=== PATIENT | female | born 1945 | race Caucasian/White ===

== ENCOUNTER → 2024-06-09 13:08 | Outpatient (REF) | payer MEDICARE, OTHER, SELFPAY | LOC: HWWDC 13:08 | PROVIDERS: ATTENDING PHYSICIAN Obstetrics & Gynecology; FAMILY PHYSICIAN Internal Medicine | DX: Z12.31 Encounter for screening mammogram for malignant neoplasm of breast (principal) | CPT/HCPCS: 77063; 77067 ==

== ENCOUNTER 2024-11-20 05:57 | Day surgery (SDC) | payer MEDICARE, OTHER, SELFPAY ==
[2024-09-05 12:51] VITALS: BMI 25.4
[2024-09-05 13:57] LABS: Hemoglobin 11.2 g/dL (12.0-16.0); Mean Corp Hgb Conc. 32.9 g/dL (33.0-37.0); Mean Corpuscular Hgb 30.9 pg (27.0-31.0); Mean Corpuscular Volume 93.7 fL (81.0-99.0); Mean Platelet Volume 9.6 fL (7.4-10.4); Platelet Count 354 10^3/uL (130-400); Red Blood Cell Count 3.63 10^6/uL (4.20-5.40); Red Cell Dist. Width 13.2 % (11.5-14.5)
[2024-09-05 14:28] LABS: ALT (SGPT) 19 U/L (0-35); AST (SGOT) 22 U/L (14-36); Alkaline Phosphatase 56 U/L (38-126); Blood Urea Nitrogen 21 mg/dl (7-17); Calcium 10.3 mg/dl (8.4-10.2); Carbon Dioxide 27 mmol/L (22-30); Chloride 92 mmol/L (98-107); Estimated Creatinine Clearance 58 ml/min; Glucose 95 mg/dl (70-99); Potassium 4.7 mmol/L (3.5-5.1); Sodium 130 mmol/L (135-145); Total Bilirubin 0.6 mg/dl (0.2-1.3); Total Protein 7.5 g/dl (6.3-8.2); eGFR > 60.00
[2024-09-05 15:40] VITALS: BMI 25.4
[2024-09-05 16:01] LABS: Reticulocyte Count 1.5 % (0.4-2.8)
[2024-09-05 16:21] LABS: Iron 105 ug/dl (37-170)
[2024-09-05 16:30] LABS: Percent Saturation 35 % (20-50); Total Iron Binding Capacity 297 ug/dl (265-497)
[2024-09-05 18:07] LABS: Folate > 20.0 ng/ml (2.76-20); Vitamin B12 577 pg/ml (239-931)
[2024-09-06 09:27] LABS: Glycohemoglobin (HgbA1c) 5.7 % (4.0-5.6)
--- NOTE | 2024-09-11 15:45 | VNURNOTE ---
Patient is scheduled for an elective R TKA on 09/25/24- she is a same day patient with Dr Burleson. Spoke with patient prior to surgery. Introduced role of [facility] Liaison. Patient reports that she lives alone in a one story home.
There is 1 step to enter.
She currently has a cane and rolling walker.
PCP is Dr Gene Ryder.
Discussed [facility] joint protocol and post surgical plans (this author was informed by MARIA M Gifford patient to have extended home PT).
Reviewed that she will have [facility] services for an extended period of time (2-3 weeks).
Patient selects [facility] for her home care needs and plans to go to [facility] on Oct 11.
Patient is in agreement with plan and states that her son will be home with her the first week post op. She did arrange caregivers through [facility]. Advised to bring RW with her day of surgery. [facility] referral placed in
[facility].
Plan: [facility] per [facility] joint protocol 09/25, extended home PT, then outpt PT at [facility]
[2024-10-26 14:13] VITALS: BMI 24.6
--- NOTE | 2024-10-26 14:24 | HPS.HSE ---
Family Physician
-
Family Physician: Connor Davenport
Chief Complaint
-
Advanced primary osteoarthritis of the right knee.
History of Present Illness
The patient is an 78-year-old female presenting today for advanced primary osteoarthritis of the right knee. The patient reports significant right knee pain and instability secondary to this diagnosis. She notes that her current right knee
symptoms greatly interfere with her activities of daily living and overall impact her quality of life. She has tried and failed multiple conservative treatment measures in the past for her right knee pain. These conservative treatment measures
include self therapeutic exercises, activity modification, corticosteroid injections, medical management with Tylenol, and the application of ice and/or heat. Recent x-ray findings of the right knee demonstrated advanced osteoarthritis, [id number]
in the lateral compartment, and periarticular spurs in the lateral and patellofemoral compartments. She was determined to be in need of a right total knee arthroplasty. She denies any current complaints today such as chest pain, shortness of breath,
palpitations, nausea, vomiting, diarrhea, lightheadedness, dizziness, cough, sore throat, or fever.
Medical History
Past Medical History
Past Medical History: Reports Other
Additional Past Medical History:
1. Osteoarthritis, status post left total knee arthroplasty, 01/2020, by Dr. Derik Burleson.
2. Hypertension.
3. Hypercholesterolemia.
4. PACs and PVCs, asymptomatic.
5. 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
6. GERD.
7. Colon polyps.
8. Diverticulosis.
9. Vertigo.
10. Right breast cancer, 1999, status post lumpectomy with lymph node excision, chemotherapy, and radiation.
11. Chronic mild anemia, pre-operative anemia panel 09/2024 stable.
12. Osteopenia.
13. Mild hyponatremia, secondary to SIADH; on fluid restriction.
14. Prediabetes, A1c 5.7.
15. Remote history of tobacco abuse.
16. Daily alcohol.
Past Surgical History: Reports Other
Additional Past Surgical History:
1. Left total knee arthroplasty, 01/2020, by Dr. Derik Burleson.
2. Left carpal tunnel release.
3. Right lumpectomy with lymph node excision.
4. Bilateral corneal transplant.
5. Bilateral cataract extraction.
6. Colonoscopy.
7. Endoscopy.
Social History
Tobacco: Former Smoker (She is a former 1 pack per day cigarette smoker who quit tobacco products altogether 40 years ago.)
Alcohol: Daily (She reports, on average, drinking 2 small glasses of wine daily. )
Living: Alone (The patient lives in a one-story home. She reports that her son will be staying with her for 5 days post-operatively.)
Family History
Family History: Not pertinent
Allergies / Home Medications
Allergy/Medication List:
Home medications:
1. Acetaminophen 500 mg p.o. every 6 hours as needed.
2. Tylenol Arthritis 1300 mg p.o. every 12 hours as needed.
3. Ascorbic acid 500 mg p.o. daily.
4. Aspirin 81 mg p.o. daily.
5. Calcium carbonate 600 mg p.o. twice a day.
6. Nexium 40 mg p.o. daily.
7. Lisinopril 40 mg p.o. daily.
8. Multivitamin 1 tablet p.o. daily.
9. Metamucil 1.2 g p.o. daily.
10. Rosuvastatin 10 mg p.o. daily.
11. PreserVision 1 tablet p.o. twice a day.
Allergies: Penicillin. Neosporin. Erythromycin.
Review of Systems
-
A 12 point ROS was completed and negative except as noted: Yes
Physical Exam
Vital Signs
Blood pressure 123/76. Heart rate 87. Respirations 18. Pulse ox 99% on room air.
Height 5 feet, 5 inches. Weight 67 kg. BMI 24.6.
Physical Exam
General: Well Developed, Well Nourished and No Apparent Distress
HEENT: NormoCephalic, Moist mucous membranes and Atraumatic
Respiratory: Clear
Cardiac: Regular Rhythm
GI: Soft, Non Tender and Non Distended
Musculoskeletal: Other (Right knee: 18 degrees valgus alignment. Significant pain with terminal extension. Small effusion. Palpable Zabala cyst. Medial joint line tenderness. Lateral joint line tenderness. Patellar grind. She ambulates with a
rolling walker. )
Skin: Warm and Dry
Neuro: AO x 3 and Nonfocal/grossly intact
Laboratory Results
-
DIAGNOSTIC STUDIES as of 10/26/2024: White blood cell count 8.0. Hemoglobin 11.4. Platelet count 294,000. Sodium 141. Potassium 4.2. BUN 23. Creatinine 0.7. Glucose 88. Hemoglobin A1c 5.7. Calcium 10.2. AST 23. ALT 21. Albumin 4.4. Type and screen A
positive. MRSA screen negative.
EKG 10/26/2024: Normal sinus rhythm. Septal infarct, age undetermined. When compared to the EKG of 09/05/2024, PACs no longer present. The patient is asymptomatic and able to preform >4 METS.
Impression/Plan
-
CLEARANCES:
1. Primary medical, Dr. Connor Davenport, cleared. Labs/EKG reviewed.
Primary medical phone number: [phone].
2. Nephrology, Dr. Wil Clement, cleared.
3. Dental waived.
IMPRESSION/PLAN:
1. Advanced primary osteoarthritis of the right knee in need of a right total knee arthroplasty by Dr. Derik Burleson on 11/20/2024. The benefits and risks of the procedure have been explained to the patient. The patient understands these risks and
wishes to proceed.
2. DVT prophylaxis: Aspirin with bilateral venous compression devices.
3. Nausea prevention: The patient would prefer IV Compazine to be given to her pre-operatively. She was advised to discuss this with her anesthesiologist the morning of her surgery. Zofran should be avoided given her history of prolonged QT.
4. Hyponatremia: This is in the setting of SIADH. She has been placed on a 40 oz fluid restriction by Nephrology given her most recent sodium result. She will continue this upon discharge.
5. Chronic anemia: Fortunately this is mild and she can proceed as planned. Her previous anemia panel was within normal limits and she denies any overt bleeding. Her most recent colonoscopy in 2022 demonstrated diverticulosis and 2 colon polyps.
6. 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 In preparation for her procedure, she has
already been prescribed Oxycodone 5 mg, 1-2 tablets p.o. every 6 hours as needed for moderate to severe post-operative pain. She will also utilize Acetaminophen 1000 mg p.o. every 6 hours and Dexamethasone 4 mg p.o. twice a day for 3 days
post-surgery. Celebrex was also prescribed prior to learning of her hyponatremia. Per her homicide squad commanding officer, she may utilize this for a 'few' days post-surgery.
7. Discharge planning: She likely would benefit from extended visiting nursing services upon discharge given her limited support system and lack of transportation to outpatient physical therapy. Jyoti Ortega from visiting nursing services was made
aware of this patient previously.
Patient's phone number: [phone].
Patient's contact (Vinicio Noyola - Son): [phone].
[2024-10-26 14:34] LABS: Hematocrit 35.4 % (37.0-47.0); Hemoglobin 11.4 g/dL (12.0-16.0); Mean Corp Hgb Conc. 32.2 g/dL (33.0-37.0); Mean Corpuscular Hgb 30.6 pg (27.0-31.0); Mean Corpuscular Volume 95.2 fL (81.0-99.0); Mean Platelet Volume 10.4 fL (7.4-10.4); Platelet Count 294 10^3/uL (130-400); Red Blood Cell Count 3.72 10^6/uL (4.20-5.40); Red Cell Dist. Width 12.6 % (11.5-14.5)
[2024-10-26 15:04] LABS: ALT (SGPT) 21 U/L (0-35); AST (SGOT) 23 U/L (14-36); Albumin 4.4 g/dl (3.5-5.0); Alkaline Phosphatase 55 U/L (38-126); Blood Urea Nitrogen 23 mg/dl (7-17); Calcium 10.2 mg/dl (8.4-10.2); Carbon Dioxide 27 mmol/L (22-30); Chloride 103 mmol/L (98-107); Estimated Creatinine Clearance 58 ml/min; Glucose 88 mg/dl (70-99); Potassium 4.2 mmol/L (3.5-5.1); Sodium 141 mmol/L (135-145); Total Bilirubin 0.6 mg/dl (0.2-1.3); Total Protein 7.4 g/dl (6.3-8.2); eGFR > 60.00
[2024-10-27 08:16] LABS: Glycohemoglobin (HgbA1c) 5.7 % (4.0-5.6)
[2024-11-20] VITALS (11 sets, daily range): BP systolic 124–156; BP diastolic 66–96
[2024-11-20] MEDS: CELEBREX 200 MG PO (06:17)
[2024-11-20] MEDS: TYLENOL 650 MG PO (06:17)
[2024-11-20] MEDS: NORMOSOL-R/PLASMALYTE-A 1000 IV (06:30)
--- NOTE | 2024-11-20 07:18 | W.DS.TRANS ---
DC Summary - Manager Customer Service
-
Discharge Instructions:
Sleep Apnea Risk Intermediate
Discharge Diagnosis/Procedures R TKA 11/20/24
Diet As tolerated
Activity With Walker
Driving Restrictions No driving
Bathing Restrictions OK to Shower
Other Services PT
Instructions:
Stand-Alone Forms: SDS Total Hip and Knee D/C
Changes to Home Medications: Yes
Discharge Medications:
DC Medications w/original date entered in [employer]
ascorbic acid (vitamin C) 500 mg tablet (Vitamin C) 500 mg PO DAILY 09/04/24
calcium carbonate (Calcium 600) 600 mg PO BID 09/04/24
esomeprazole magnesium 40 mg capsule,delayed release (Nexium) 40 mg PO DAILY 09/04/24
lisinopril 40 mg tablet 40 mg PO DAILY 09/04/24
multivitamin 1 tab PO DAILY 09/04/24
psyllium husk 0.4 gram capsule (Metamucil) 1.2 g PO DAILY 09/04/24
rosuvastatin 10 mg tablet 10 mg PO DAILY 09/04/24
vit C 250 mg-vit E 90 mg-zinc 40 mg-copper 1 nw-omkfig-detpol capsule (PreserVision AREDS-2) 1 tab PO BID 09/04/24
acetaminophen 500 mg tablet 1,000 mg (2 x 500 mg) PO QID #0 tabs 11/20/24
aspirin 325 mg tablet 325 mg PO DAILY blood clot prevention #1 tab 11/20/24
dexamethasone 4 mg tablet 4 mg PO BID inflammation #6 tabs 11/20/24
docusate sodium 100 mg capsule (Colace) 100 mg PO BID stool softner #1 cap 11/20/24
gabapentin 300 mg capsule 300 mg PO HS sleep/pain #10 caps 11/20/24
magnesium hydroxide 400 mg/5 mL oral suspension (Milk of Magnesia) 30 ml PO HS PRN Constipation #1 mL 11/20/24
meloxicam 15 mg tablet 15 mg PO DAILY anti-inflammatory #14 tabs 11/20/24
oxycodone 5 mg tablet 5 mg PO Q6H PRN 1 tab moderate pain, 2 tabs severe pain #30 tabs 11/20/24
prochlorperazine maleate 5 mg tablet 5 mg PO Q6HPRN PRN n/v #15 tabs 11/20/24
sennosides 8.6 mg tablet (Senokot) 17.2 mg (2 x 8.6 mg) PO BID laxative #2 tabs 11/20/24
Home Medication Changes
aspirin 325 mg tablet 325 mg PO DAILY blood clot prevention #1 tab 11/20/24
dexamethasone 4 mg tablet 4 mg PO BID inflammation #6 tabs 11/20/24
docusate sodium 100 mg capsule (Colace) 100 mg PO BID stool softner #1 cap 11/20/24
gabapentin 300 mg capsule 300 mg PO HS sleep/pain #10 caps 11/20/24
magnesium hydroxide 400 mg/5 mL oral suspension (Milk of Magnesia) 30 ml PO HS PRN Constipation #1 mL 11/20/24
meloxicam 15 mg tablet 15 mg PO DAILY anti-inflammatory #14 tabs 11/20/24
oxycodone 5 mg tablet 5 mg PO Q6H PRN 1 tab moderate pain, 2 tabs severe pain #30 tabs 11/20/24
prochlorperazine maleate 5 mg tablet 5 mg PO Q6HPRN PRN n/v #15 tabs 11/20/24
sennosides 8.6 mg tablet (Senokot) 17.2 mg (2 x 8.6 mg) PO BID laxative #2 tabs 11/20/24
Pending Results: No
[2024-11-20] MEDS: DEMEROL 12.5 MG IV (08:46)
[2024-11-20] MEDS: ANCEF 5 IV (11:09)
[2024-11-20] MEDS: TYLENOL 1000 MG PO (12:51)
== END 2024-11-20 13:52 | disposition home or self-care (01) ==
LOC: SDS 05:57
PROVIDERS: ATTENDING PHYSICIAN Specialist; FAMILY PHYSICIAN Internal Medicine; OTHER PHYSICIAN Physician Assistant
DX: M17.11 Unilateral primary osteoarthritis, right knee (principal); M85.80 Other specified disorders of bone density and structure, unspecified site; Z87.891 Personal history of nicotine dependence
CPT/HCPCS: 27447; C1713; C1776; 36415; 73560; 80053; 82607; 82728; 82746; 83036; 83540; 83550; 85027; 85045; 86850; 86900; 86901; 87070; 93005; 97116; 97162